=== PATIENT | female | born 1960 | race Caucasian/White ===

== ENCOUNTER 2020-04-16 00:41 | Outpatient (CLI) | payer BC, SELFPAY ==
--- NOTE | 2020-04-16 12:45 | DI.US_ITS ---
EXAM: US PELVIS TRANSVAGINAL CLINICAL HISTORY: RLQ pain, pelvic pain, R10.2 TECHNIQUE: Ultrasound performed using standard protocol. COMPARISON: No exams were available for comparison FINDINGS: Pelvic ultrasound was performed trans abdominally and transvaginally. Patient has reportedly had a p rior hysterectomy. Left ovary is nonvisualized. Right ovary is grossly unremarkable in appearance a lthough not ideally seen, right ovarian measurements 37 x 9 x 16 millimeters.. No free fluid identif ied in the pelvis. Limited scanning of the kidneys is unremarkable. IMPRESSION: Left ovary nonvisualized and right ovary suboptimally seen but grossly unremarkable in a patient who is reportedly status post hysterectomy. DATA REPOSITORY:
== END 2020-04-16 01:01 ==
PROVIDERS: PCP Registered Nurse; Visit Provider Obstetrics & Gynecology Gynecology
DX: R10.2 Pelvic and perineal pain (principal); R10.31 Right lower quadrant pain
CPT/HCPCS: 76830; 76856